=== PATIENT | female | born 1955 | race Caucasian/White ===

== ENCOUNTER → 2016-09-24 | Outpatient (CLI) | payer OTHER ==
--- NOTE | 2016-09-24 17:02 | REP ---
Chest x-ray: Four views. History: Cough. Findings: The lungs are symmetrically aerated and free of infiltrate. Pleural angles are sharp. Heart size is normal. There are degenerative changes in the thoracic spine. Impression: No active disease. Signed by Rodrigo Augustine MD 09/24/2016 04:53 P
== END ==
LOC: M LRY 14:37
PROVIDERS: ATTEND Family Medicine
DX: R05 Cough (principal)

== ENCOUNTER 2016-10-22 08:22 | Emergency (ER) | payer OTHER ==
--- NOTE | 2016-10-22 09:52 | EDDOCDS ---
Physician Documentation [facility] Name: Janet Cross Age: 61 yrs Sex: Female : 1955 Arrival Date: 10/22/2016 Time: 08:22 Bed Triage 1 Private MD: Disposition: 10/22/16 09:26 Discharged to Home/Self Care. Impression: Radiculopathy, cervical region. - Condition is Stable. - Discharge Instructions: Cervical Radiculopathy, [id number]. - Prescriptions for Diclofenac Sodium 75 mg Oral Tablet, Delayed Release (E.C.) - take 1 tablet by ORAL route 2 times per day; 30 tablet. Robaxin- 750 750 mg Oral Tablet - take 1 tablet by ORAL route every 6 hours As needed; 40 tablet. - Medication Reconciliation, Local Pharmacy Hours form. - Follow up: Norman Frank MD; When: Call to arrange an appointment; Reason: Further diagnostic work-up, Recheck today's complaints, Continuance of care. - Problem is new. - Symptoms are unchanged. Historical: - Allergies: PENICILLINS (Rash); Prednisone (Anaphylaxis); - Home Meds: 1. Synthroid 100 mcg Oral tab 1 tab once daily (Last dose: 10/22/2016 07:00) 2. Prilosec 20 mg Oral cpDR 2 times per day (Last dose: 10/22/2016 07:00) - PMHx: Hypothyroidism; GERD; - PSHx: Appendectomy; Hysterectomy; Tonsillectomy; - Social history: Smoking status: Patient states former smoker of tobacco. No barriers to communication noted, The patient speaks fluent Icelandic. - Family history: Not pertinent. - : The pt / caregiver states he / she is not on anticoagulants. Home medication list is obtained from the patient. - Exposure Risk Screening:: None identified. Vital Signs: 10/22 09:03 BP 185 / 81; Pulse 68; Resp 20; Temp 97.8(T); Pulse Ox 98% on R/A; Weight 72.57 kg / dwg 159.99 lbs; Height 5 ft. 7 in. (170.18 cm); Pain 10/10; 09:46 BP 158 / 71; Pulse 72; Resp 20; Temp 98.1(T); Pulse Ox 99% on R/A; dwg 09:03 Body Mass Index 25.06 (72.57 kg, 170.18 cm) [facility] Signatures: William Ennis RN RN dwg Omer Larkin PA PA btw MTDD
--- NOTE | 2016-10-22 09:52 | EDDOCDS ---
Nurse's Notes [facility] Name: Janet Cross Age: 61 yrs Sex: Female : 1955 Arrival Date: 10/22/2016 Time: 08:22 Bed Triage 1 Private MD: Diagnosis: Radiculopathy, cervical region Presentation: 10/22 08:58 Presenting complaint: Patient states: Right arm pain with intermittent numbness for 2-3 dwg days, no injury. Adult Sepsis Screening: The patient does not have new or worsening altered mentation. Patient's respiratory rate is less than 22. Systolic blood pressure is greater than 100. Patient has a qSOFA score of 0- Negative Sepsis Screen. Suicide/Homicide risk assessment- the patient denies having any suicidal and/or homicidal ideations and does not present with any other emotional, behavioral or mental health complaints. Status: Retired. Transition of care: patient was not received from another setting of care. 08:58 Acuity: BECKY Level 3 dwg 08:58 Method Of Arrival: Walkin/Carried/Asstd dwg Triage Assessment: 09:03 General: Appears in no apparent distress. Pain: Pain currently is 10 out of 10 on a dwg pain scale. Pt Declines HIV testing. Historical: - Allergies: PENICILLINS (Rash); Prednisone (Anaphylaxis); - Home Meds: 1. Synthroid 100 mcg Oral tab 1 tab once daily (Last dose: 10/22/2016 07:00) 2. Prilosec 20 mg Oral cpDR 2 times per day (Last dose: 10/22/2016 07:00) - PMHx: Hypothyroidism; GERD; - PSHx: Appendectomy; Hysterectomy; Tonsillectomy; - Social history: Smoking status: Patient states former smoker of tobacco. No barriers to communication noted, The patient speaks fluent Venezuelan. - Family history: Not pertinent. - : The pt / caregiver states he / she is not on anticoagulants. Home medication list is obtained from the patient. - Exposure Risk Screening:: None identified. Screenin:48 Screening information is obtained from the patient. Primary language is Venezuelan. Fall dwg risk: No risks identified. Assistance ADL's: requires no assistance with activities of daily living. Abuse/DV Screen: The patient / caregiver reports he/she is: not in a situation that causes fear, pain or injury. Nutritional screening: No deficits noted. Advance Directives: Currently, there is no health care proxy. There is no active DNR order. There is no living will. There is no Power of Digital Account Supervisor. Advance directive information has not previously been placed in an [facility] medical record. Further advance directive information is declined. home support is adequate. Assessment: 09:46 The patient / caregiver is instructed regarding the plan of care and ED course. [facility] Physical assessment to be completed by PA/ED. Vital Signs: 09:03 BP 185 / 81; Pulse 68; Resp 20; Temp 97.8(T); Pulse Ox 98% on R/A; Weight 72.57 kg; dwg Height 5 ft. 7 in. (170.18 cm); Pain 10/10; 09:46 BP 158 / 71; Pulse 72; Resp 20; Temp 98.1(T); Pulse Ox 99% on R/A; dwg 09:03 Body Mass Index 25.06 (72.57 kg, 170.18 cm) [facility] Vitals: 09:03 Log In Time: October 22, 2016 at 08:23. [facility] ED Course: 08:23 Patient visited by Terrence Bae. jp5 08:23 Patient moved to Waiting jp5 08:57 Patient moved to Triage 1 [facility] 09:00 Triage Initiated dw 09:12 Omer Larkin PA is PHCP. btw 09:12 Juanis Glaser MD is Attending Physician. btw 09:12 Patient visited by Omer Larkin PA. btw 09:26 Norman Frank MD is Referral Physician. btw 09:49 Patient has correct armband on for positive identification. Bed in low position. Adult dwg w/ patient. 09:49 Patient visited by William Ennis RN. dwg 09:49 No IV's were initiated during this patient's visit. No procedures done that require dwg assistance. Order Results: There are currently no results for this order. Outcome: 09:26 Discharge ordered by Provider. btw 09:48 The following High Risk Discharge criteria are identified: None. Discharged to home dwg ambulatory. Condition: good Condition: stable. No special radiology studies were completed. 09:49 Discharge Assessment: Patient awake, alert and oriented x 3. No cognitive and/or dwg functional deficits noted. Patient verbalized understanding of disposition instructions. patient administered narcotics - no. Property sent home with patient. 09:49 Patient left the ED. dwg Signatures: William Ennis RN RN Omer Lorenzana PA PA btw Price, Jennalee jp5 MTDD
--- NOTE | 2016-10-24 10:52 | EDDOCDS ---
Physician Documentation [facility] Name: Janet Cross Age: 61 yrs Sex: Female : 1955 Arrival Date: 10/22/2016 Time: 08:22 Bed Triage 1 Private MD: Disposition: 10/22/16 09:26 Discharged to Home/Self Care. Impression: Radiculopathy, cervical region. - Condition is Stable. - Discharge Instructions: Cervical Radiculopathy, [id number]. - Prescriptions for Diclofenac Sodium 75 mg Oral Tablet, Delayed Release (E.C.) - take 1 tablet by ORAL route 2 times per day; 30 tablet. Robaxin- 750 750 mg Oral Tablet - take 1 tablet by ORAL route every 6 hours As needed; 40 tablet. - Medication Reconciliation, Local Pharmacy Hours form. - Follow up: Norman Frank MD; When: Call to arrange an appointment; Reason: Further diagnostic work-up, Recheck today's complaints, Continuance of care. - Problem is new. - Symptoms are unchanged. Historical: - Allergies: PENICILLINS (Rash); Prednisone (Anaphylaxis); - Home Meds: 1. Synthroid 100 mcg Oral tab 1 tab once daily (Last dose: 10/22/2016 07:00) 2. Prilosec 20 mg Oral cpDR 2 times per day (Last dose: 10/22/2016 07:00) - PMHx: Hypothyroidism; GERD; - PSHx: Appendectomy; Hysterectomy; Tonsillectomy; - Social history: Smoking status: Patient states former smoker of tobacco. No barriers to communication noted, The patient speaks fluent Somali. - Family history: Not pertinent. - : The pt / caregiver states he / she is not on anticoagulants. Home medication list is obtained from the patient. - Exposure Risk Screening:: None identified. Vital Signs: 10/22 09:03 BP 185 / 81; Pulse 68; Resp 20; Temp 97.8(T); Pulse Ox 98% on R/A; Weight 72.57 kg / dwg 159.99 lbs; Height 5 ft. 7 in. (170.18 cm); Pain 10/10; 09:46 BP 158 / 71; Pulse 72; Resp 20; Temp 98.1(T); Pulse Ox 99% on R/A; dwg 09:03 Body Mass Index 25.06 (72.57 kg, 170.18 cm) [facility] MDM: 10:04 [place] [place] Agreement was scanned into [employer] and attached to record. lg 15:14 T-Sheet-- Draft Copy was scanned into [employer] and attached to record. gb Signatures: William Ennis RN RN [facility] Sammie Fleming, Reg Reg gb Zia Siegel, Reg Reg lg Omer Larkin PA PA btw The chart was reviewed and I authenticate all verbal orders and agree with the evaluation and treatment provided.Attachments: 10:04 [facility] Payment Agreement lg 15:14 T-Sheet-- Draft Copy gb Chart Complete MTDD
--- NOTE | 2016-10-24 10:52 | EDDOCDS ---
Physician Documentation [facility] Name: Janet Cross Age: 61 yrs Sex: Female : 1955 Arrival Date: 10/22/2016 Time: 08:22 Bed Triage 1 Private MD: Disposition: 10/22/16 09:26 Discharged to Home/Self Care. Impression: Radiculopathy, cervical region. - Condition is Stable. - Discharge Instructions: Cervical Radiculopathy, [id number]. - Prescriptions for Diclofenac Sodium 75 mg Oral Tablet, Delayed Release (E.C.) - take 1 tablet by ORAL route 2 times per day; 30 tablet. Robaxin- 750 750 mg Oral Tablet - take 1 tablet by ORAL route every 6 hours As needed; 40 tablet. - Medication Reconciliation, Local Pharmacy Hours form. - Follow up: Norman Frank MD; When: Call to arrange an appointment; Reason: Further diagnostic work-up, Recheck today's complaints, Continuance of care. - Problem is new. - Symptoms are unchanged. Historical: - Allergies: PENICILLINS (Rash); Prednisone (Anaphylaxis); - Home Meds: 1. Synthroid 100 mcg Oral tab 1 tab once daily (Last dose: 10/22/2016 07:00) 2. Prilosec 20 mg Oral cpDR 2 times per day (Last dose: 10/22/2016 07:00) - PMHx: Hypothyroidism; GERD; - PSHx: Appendectomy; Hysterectomy; Tonsillectomy; - Social history: Smoking status: Patient states former smoker of tobacco. No barriers to communication noted, The patient speaks fluent Portuguese. - Family history: Not pertinent. - : The pt / caregiver states he / she is not on anticoagulants. Home medication list is obtained from the patient. - Exposure Risk Screening:: None identified. Vital Signs: 10/22 09:03 BP 185 / 81; Pulse 68; Resp 20; Temp 97.8(T); Pulse Ox 98% on R/A; Weight 72.57 kg / dwg 159.99 lbs; Height 5 ft. 7 in. (170.18 cm); Pain 10/10; 09:46 BP 158 / 71; Pulse 72; Resp 20; Temp 98.1(T); Pulse Ox 99% on R/A; dwg 09:03 Body Mass Index 25.06 (72.57 kg, 170.18 cm) [facility] MDM: 10:04 [facility] [place] Payment Agreement was scanned into [employer] and attached to record. lg 15:14 T-Sheet-- Draft Copy was scanned into [employer] and attached to record. gb Signatures: William Ennis RN RN [facility] Sammie Fleming, Reg Reg gb Zia Siegel, Reg Reg lg Omer Larkin PA PA btw The chart was reviewed and I authenticate all verbal orders and agree with the evaluation and treatment provided.Attachments: 10:04 [facility] Payment Agreement lg 15:14 T-Sheet-- Draft Copy gb Chart Complete MTDD
--- NOTE | 2016-10-24 10:52 | EDDOCDS ---
Nurse's Notes [facility] Name: Janet Cross Age: 61 yrs Sex: Female : 1955 Arrival Date: 10/22/2016 Time: 08:22 Bed Triage 1 Private MD: Diagnosis: Radiculopathy, cervical region Presentation: 10/22 08:58 Presenting complaint: Patient states: Right arm pain with intermittent numbness for 2-3 dwg days, no injury. Adult Sepsis Screening: The patient does not have new or worsening altered mentation. Patient's respiratory rate is less than 22. Systolic blood pressure is greater than 100. Patient has a qSOFA score of 0- Negative Sepsis Screen. Suicide/Homicide risk assessment- the patient denies having any suicidal and/or homicidal ideations and does not present with any other emotional, behavioral or mental health complaints. Status: Retired. Transition of care: patient was not received from another setting of care. 08:58 Acuity: BECKY Level 3 dwg 08:58 Method Of Arrival: Walkin/Carried/Asstd dwg Triage Assessment: 09:03 General: Appears in no apparent distress. Pain: Pain currently is 10 out of 10 on a dwg pain scale. Pt Declines HIV testing. Historical: - Allergies: PENICILLINS (Rash); Prednisone (Anaphylaxis); - Home Meds: 1. Synthroid 100 mcg Oral tab 1 tab once daily (Last dose: 10/22/2016 07:00) 2. Prilosec 20 mg Oral cpDR 2 times per day (Last dose: 10/22/2016 07:00) - PMHx: Hypothyroidism; GERD; - PSHx: Appendectomy; Hysterectomy; Tonsillectomy; - Social history: Smoking status: Patient states former smoker of tobacco. No barriers to communication noted, The patient speaks fluent Burkinan. - Family history: Not pertinent. - : The pt / caregiver states he / she is not on anticoagulants. Home medication list is obtained from the patient. - Exposure Risk Screening:: None identified. Screenin:48 Screening information is obtained from the patient. Primary language is Burkinan. Fall dwg risk: No risks identified. Assistance ADL's: requires no assistance with activities of daily living. Abuse/DV Screen: The patient / caregiver reports he/she is: not in a situation that causes fear, pain or injury. Nutritional screening: No deficits noted. Advance Directives: Currently, there is no health care proxy. There is no active DNR order. There is no living will. There is no Power of Provisioning Specialist. Advance directive information has not previously been placed in an [facility] medical record. Further advance directive information is declined. home support is adequate. Assessment: 09:46 The patient / caregiver is instructed regarding the plan of care and ED course. [facility] Physical assessment to be completed by PA/EDMD. Vital Signs: 09:03 BP 185 / 81; Pulse 68; Resp 20; Temp 97.8(T); Pulse Ox 98% on R/A; Weight 72.57 kg; dwg Height 5 ft. 7 in. (170.18 cm); Pain 10/10; 09:46 BP 158 / 71; Pulse 72; Resp 20; Temp 98.1(T); Pulse Ox 99% on R/A; dwg 09:03 Body Mass Index 25.06 (72.57 kg, 170.18 cm) [facility] Vitals: 09:03 Log In Time: October 22, 2016 at 08:23. [facility] ED Course: 08:23 Patient visited by Terrence Bae. jp5 08:23 Patient moved to Waiting jp5 08:57 Patient moved to Triage 1 dw 09:00 Triage Initiated dw 09:12 Omer Larkin PA is PHCP. btw 09:12 Juanis Glaser MD is Attending Physician. btw 09:12 Patient visited by Omer Larkin PA. btw 09:26 Norman Frank MD is Referral Physician. btw 09:49 Patient has correct armband on for positive identification. Bed in low position. Adult dwg w/ patient. 09:49 Patient visited by William Ennis RN. dwg 09:49 No IV's were initiated during this patient's visit. No procedures done that require dwg assistance. 10:04 [place] [place] Agreement was scanned into [employer] and attached to record. lg 15:14 T-Sheet-- Draft Copy was scanned into [employer] and attached to record. gb Order Results: There are currently no results for this order. Outcome: 09:26 Discharge ordered by Provider. btw 09:48 The following High Risk Discharge criteria are identified: None. Discharged to home dwg ambulatory. Condition: good Condition: stable. No special radiology studies were completed. :49 Discharge Assessment: Patient awake, alert and oriented x 3. No cognitive and/or dwg functional deficits noted. Patient verbalized understanding of disposition instructions. patient administered narcotics - no. Property sent home with patient. :49 Patient left the ED. dwg Signatures: William Ennis RN RN dwg Sammie Fleming, Reg Reg gb Zia Siegel, Reg Reg lg Omer Larkin PA PA btw Terrence Bae jp5 Chart Complete MTDD
== END 2016-10-22 09:49 | disposition home or self-care (01) ==
LOC: M ED 08:22
DX: M54.12 Radiculopathy, cervical region (principal); M79.601 Pain in right arm; E03.9 Hypothyroidism, unspecified; K21.9 Gastro-esophageal reflux disease without esophagitis; M79.7 Fibromyalgia; Z79.899 Other long term (current) drug therapy; Z79.52 Long term (current) use of systemic steroids; Z88.0 Allergy status to penicillin; Z88.8 Allergy status to other drugs, medicaments and biological substances; Z87.891 Personal history of nicotine dependence

== ENCOUNTER → 2024-01-25 | Outpatient (CLI) | payer MEDICARE, OTHER ==
[~2024-01-25] MED LIST: MV-M1TAB13 PO; OMEP-173 PO; RA T500C2 PO; SYNT100T PO; VITA500C3 PO
== END ==
LOC: M WHC 09:46
PROVIDERS: ATTEND Family Medicine
DX: Z12.31 Encounter for screening mammogram for malignant neoplasm of breast (principal)